=== PATIENT | female | born 1990 | race African-American/Black ===

== ENCOUNTER 2020-01-24 16:39 | Emergency (ER) | payer OTHER, MEDICAID ==
[~2020-01-24] VITALS: Ht 152.4 cm; Wt 107.0 kg
[2020-01-24] MEDS ORDERED: TRANDATE 200 M200 M1 PO (17:14)
[2020-01-24] MEDS ORDERED: PLAQUENIL200 MG PO (17:14)
[2020-01-24] MEDS ORDERED: NORVASC5 M1 PO (17:15)
[2020-01-24] MEDS ORDERED: PREDNISONE 5 MG5 M1 PO (17:15)
[2020-01-24 17:56] LABS: INFLUENZA A ANTIGEN Negative (Negative)
[2020-01-24 18:10] VITALS: BP 138/81
== END 2020-01-24 18:10 | disposition home or self-care (01) ==
LOC: M.ERS 16:39
PROVIDERS: Nurse Practitioner
DX: J10.1 Influenza due to other identified influenza virus with other respiratory manifestations (principal); I10 Essential (primary) hypertension; M06.9 Rheumatoid arthritis, unspecified; Z88.0 Allergy status to penicillin; Z88.1 Allergy status to other antibiotic agents; Z88.8 Allergy status to other drugs, medicaments and biological substances

== ENCOUNTER 2020-05-24 09:35 | Emergency (ER) | payer OTHER ==
[~2020-05-24] VITALS: Ht 162.6 cm; Wt 158.8 kg
[~2020-05-24 09:35] MED LIST: NORVASC5 M1 PO; PLAQUENIL200 MG PO; PREDNISONE 5 MG5 M1 PO; TRANDATE 200 M200 M1 PO
[2020-05-24 10:33] LABS: HEMATOCRIT 41.5 % (37.0-47.0); MCH 29.4 pg (26.0-34.0); MCHC 33.7 g/dL (28.0-37.0); MCV 87.4 fL (80.0-100.0); MPV 7.7 fl. (7.2-11.1); NUCLEATED RBCS 0 /100WBC; PLATELET COUNT* 254 thou/uL (150-400); RBC 4.75 mil/uL (4.20-5.00); RDW-CV 13.7 % (10.5-14.5); WBC 11.9 thou/uL (4.0-11.0)
[2020-05-24 10:43] LABS: CALCIUM 8.6 mg/dL (8.5-10.1); POTASSIUM 3.7 mmol/L (3.5-5.1)
[2020-05-24 10:48] LABS: ALBUMIN 3.2 g/dL (3.4-5.0); TOTAL BILIRUBIN 0.5 mg/dL (<0.1-1.0); TOTAL PROTEIN 6.9 g/dL (6.4-8.2)
[2020-05-24 11:05] LABS: URINE BILIRUBIN NEGATIVE (Negative); URINE BLOOD 3+ (Negative); URINE CLARITY CLEAR; URINE COLOR YELLOW; URINE GLUCOSE-RANDOM NEGATIVE (Negative); URINE KETONES NEGATIVE (Negative); URINE LEUKOCYTES-REFLEX 1+ (Negative); URINE NITRITE-REFLEX NEGATIVE (Negative); URINE PROTEIN NEGATIVE (Negative); URINE SPECIFIC GRAVITY 1.025 (1.005-1.030); URINE UROBILINOGEN 0.2 E.U./dl (0.2-1.0)
[2020-05-24 11:20] LABS: SQUAMOUS 0-3 Few /LPF (0-3); URINE RBC 0-2 Rare /HPF (0-2); URINE WBC-REFLEX 6-15 Few /HPF (0-5)
[2020-05-24 11:21] LABS: CASTS None Seen /LPF (None Seen); CRYSTALS None Seen /LPF (None Seen); MUCUS 0-3 Light strn/LPF (None Seen); TRANSITIONAL EPITHEL CELL 0-3 Few /LPF (None Seen)
[2020-05-24] MEDS ORDERED: BACTRIM DS TAB1 EACH PO (11:47)
[2020-05-24 11:56] LABS: ABSOLUTE LYMPHOCYTES 1.3 thou/uL (0.8-5.3); ABSOLUTE MONOCYTES 0.2 thou/uL (0.0-1.2); ABSOLUTE NEUTROPHILS 10.4 thou/uL (1.6-8.1); PLATELET ESTIMATE ADEQUATE
[2020-05-24 12:20] VITALS: BP 133/77
--- NOTE | 2020-05-25 12:33 | EKG ---
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 : 1990 Requested By: Marquita Flores Order Number: [id number] MD: Josue Rosado Measurements Intervals [place] Rate: 120 P: 48 SC: 149 QRS: 13 QRSD: 95 T: 49 QT: 304 QTc: 430 Interpretive Statements Sinus tachycardia Baseline wander in lead(s) II,III,aVL,aVF No previous ECG available for comparison Electronically Signed On 05-25-2020 12:33:05 CDT by Josue Rosado [email or web address] <ELECTRONICALLY SIGNED> By: Diya Rosado MD, [facility] 05/25/20 1233 0948 0948 Diya Rosado MD, [facility] /EPI
== END 2020-05-24 12:20 | disposition home or self-care (01) ==
LOC: M.ERS 09:35
PROVIDERS: Personal Emergency Response Attendant
DX: N39.0 Urinary tract infection, site not specified (principal); I10 Essential (primary) hypertension; M06.9 Rheumatoid arthritis, unspecified; Z88.0 Allergy status to penicillin; Z88.1 Allergy status to other antibiotic agents; Z88.8 Allergy status to other drugs, medicaments and biological substances

== ENCOUNTER 2021-07-08 10:12 | Emergency (ER) | payer MEDICAID ==
[~2021-07-08] VITALS: Ht 152.4 cm; Wt 105.2 kg
[~2021-07-08 10:12] MED LIST changes: +BACTRIM DS TAB1 EACH PO
[2021-07-08] MEDS ORDERED: XARELTO20 MG PO (10:39)
[2021-07-08] MEDS ORDERED: METHOCARBAMOL500 M2 PO (10:40)
[2021-07-08 11:28] LABS: URINE BILIRUBIN NEGATIVE (Negative); URINE BLOOD NEGATIVE (Negative); URINE CLARITY CLEAR; URINE COLOR YELLOW; URINE GLUCOSE-RANDOM NEGATIVE (Negative); URINE KETONES NEGATIVE (Negative); URINE LEUKOCYTES-REFLEX NEGATIVE (Negative); URINE NITRITE-REFLEX NEGATIVE (Negative); URINE PROTEIN NEGATIVE (Negative); URINE UROBILINOGEN 0.2 E.U./dl (0.2-1.0)
[2021-07-08] MEDS ORDERED: MEDROLDOSEPACK PO (13:23)
[2021-07-08] MEDS ORDERED: FLEXERIL PO (13:24)
[2021-07-08 13:30] VITALS: BP 130/93
== END 2021-07-08 13:34 | disposition home or self-care (01) ==
LOC: M.ERS 10:12
PROVIDERS: Nurse Practitioner Family
DX: M75.41 Impingement syndrome of right shoulder (principal); I10 Essential (primary) hypertension; M06.9 Rheumatoid arthritis, unspecified; Z79.899 Other long term (current) drug therapy; Z88.0 Allergy status to penicillin; Z88.1 Allergy status to other antibiotic agents; Z88.8 Allergy status to other drugs, medicaments and biological substances; Z88.9 Allergy status to unspecified drugs, medicaments and biological substances; Z88.6 Allergy status to analgesic agent; Z86.718 Personal history of other venous thrombosis and embolism

== ENCOUNTER 2021-08-31 10:07 | Emergency (ER) | payer OTHER, MEDICAID ==
[~2021-08-31] VITALS: Ht 152.4 cm; Wt 108.9 kg
[~2021-08-31 10:07] MED LIST changes: +FLEXERIL PO; +MEDROLDOSEPACK PO; +METHOCARBAMOL500 M2 PO; +XARELTO20 MG PO
[2021-08-31 10:46] LABS: URINE BILIRUBIN NEGATIVE (Negative); URINE BLOOD 3+ (Negative); URINE CLARITY SL CLOUDY; URINE COLOR RED; URINE GLUCOSE-RANDOM NEGATIVE (Negative); URINE KETONES NEGATIVE (Negative); URINE LEUKOCYTES-REFLEX TRACE (Negative); URINE NITRITE-REFLEX NEGATIVE (Negative); URINE PROTEIN 2+ (Negative); URINE UROBILINOGEN 0.2 E.U./dl (0.2-1.0)
[2021-08-31 10:53] LABS: BACTERIA-REFLEX None Seen /HPF (None Seen); CASTS None Seen /LPF (None Seen); MUCUS None Seen strn/LPF (None Seen); SQUAMOUS 0-3 Few /LPF (0-3); URINE RBC >20 Many /HPF (0-2); URINE WBC-REFLEX 0-5 Rare /HPF (0-5)
--- NOTE | 2021-08-31 10:55 | EKG ---
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 : 1990 Requested By: Margy Nolasco Order Number: [id number] MD: Leonardo Vasquez Measurements Intervals [place] Rate: 85 P: 54 WI: 167 QRS: 12 QRSD: 94 T: 38 QT: 374 QTc: 445 Interpretive Statements Sinus rhythm Probable left atrial enlargement Probable left ventricular hypertrophy Anterior Q waves, possibly due to LVH Baseline wander in lead(s) I,III,aVR,aVL Compared to ECG 05/24/2020 09:48:08 Left ventricular hypertrophy now present Sinus tachycardia no longer present Electronically Signed On 08-31-2021 10:55:08 CDT by Leonardo Vasquez [email or web address] <ELECTRONICALLY SIGNED> By: Leonardo Vasquez MD, FACC 08/31/21 1055 1011 1011 Leonardo Vasquez MD, [facility] /EPI
[2021-08-31 11:00] LABS: HEMATOCRIT 38.9 % (37.0-47.0); HEMOGLOBIN 12.8 gm/dL (12.0-15.0); LYMPHOCYTES 43.3 %; MCH 27.4 pg (26.0-34.0); MCV 82.8 fL (80.0-100.0); MPV 7.4 fl. (7.2-11.1); PLATELET COUNT* 225 thou/uL (150-400); POLYS 47.9 %; RDW-CV 14.8 % (10.5-14.5); WBC 6.1 thou/uL (4.0-11.0)
[2021-08-31 11:01] LABS: ABSOLUTE EOSINOPHILS 0.1 thou/uL (0.0-0.7); ABSOLUTE LYMPHOCYTES 2.6 thou/uL (0.8-5.3); ABSOLUTE MONOCYTES 0.4 thou/uL (0.0-1.2); ABSOLUTE NEUTROPHILS 2.9 thou/uL (1.6-8.1); BASOPHILS 0.4 %; EOSINOPHILS 1.3 %; MONOCYTES 7.1 %; NUCLEATED RBCS 0 /100WBC
[2021-08-31 11:03] LABS: INFLUENZA A ANTIGEN Negative (Negative); INFLUENZA B ANTIGEN Negative (Negative)
[2021-08-31 11:14] LABS: CALCIUM 8.5 mg/dL (8.5-10.1); CREATININE 0.8 mg/dL (0.6-1.3); POTASSIUM 3.5 mmol/L (3.5-5.1)
[2021-08-31 11:23] LABS: AMP/METHAMP Negative (Negative); BARBITURATES Negative (Negative); BENZODIAZEPINES Negative (Negative); COCAINE Negative (Negative); METHADONE Negative (Negative); OPIATES Negative (Negative); PCP Negative (Negative); THC Negative (Negative)
[2021-08-31 11:25] LABS: ALBUMIN 3.4 g/dL (3.4-5.0); MAGNESIUM 1.8 mg/dL (1.8-2.4); TOTAL BILIRUBIN 0.3 mg/dL (<0.1-1.0); TOTAL PROTEIN 6.9 g/dL (6.4-8.2)
[2021-08-31] MEDS ORDERED: HYDROXYZINE HCL25 M2 PO (13:35)
[2021-08-31] MEDS ORDERED: FLEXERIL PO (13:35)
[2021-08-31] MEDS ORDERED: NASONEX17 GM NASAL (13:35)
[2021-08-31] MEDS ORDERED: METHOCARBAMOL750 MG PO (13:45)
[2021-08-31 13:49] VITALS: BP 134/72
== END 2021-08-31 13:51 | disposition home or self-care (01) ==
LOC: M.ERS 10:07
PROVIDERS: Nurse Practitioner Family
DX: B34.9 Viral infection, unspecified (principal); Z20.822 Contact with and (suspected) exposure to COVID-19; F41.9 Anxiety disorder, unspecified; R07.89 Other chest pain; I10 Essential (primary) hypertension; Z79.899 Other long term (current) drug therapy; Z88.1 Allergy status to other antibiotic agents; Z88.0 Allergy status to penicillin; Z88.6 Allergy status to analgesic agent; Z88.9 Allergy status to unspecified drugs, medicaments and biological substances

== ENCOUNTER 2021-09-03 00:09 | Emergency (ER) | payer OTHER, MEDICAID ==
[~2021-09-03] VITALS: Ht 152.4 cm; Wt 107.0 kg
[~2021-09-03 00:09] MED LIST changes: +HYDROXYZINE HCL25 M2 PO; +METHOCARBAMOL750 MG PO; +NASONEX17 GM NASAL
[2021-09-03 00:36] LABS: URINE BILIRUBIN NEGATIVE (Negative); URINE BLOOD 3+ (Negative); URINE CLARITY CLEAR; URINE COLOR YELLOW; URINE GLUCOSE-RANDOM NEGATIVE (Negative); URINE KETONES NEGATIVE (Negative); URINE LEUKOCYTES-REFLEX NEGATIVE (Negative); URINE NITRITE-REFLEX NEGATIVE (Negative); URINE PROTEIN 1+ (Negative); URINE SPECIFIC GRAVITY 1.025 (1.005-1.030); URINE UROBILINOGEN 0.2 E.U./dl (0.2-1.0)
[2021-09-03 00:47] LABS: CASTS None Seen /LPF (None Seen); CRYSTALS None Seen /LPF (None Seen); MUCUS 0-3 Light strn/LPF (None Seen); SQUAMOUS 0-3 Few /LPF (0-3); TRANSITIONAL EPITHEL CELL 0-3 Few /LPF (None Seen); URINE RBC >20 Many /HPF (0-2); URINE WBC-REFLEX 0-5 Rare /HPF (0-5)
[2021-09-03] MEDS ORDERED: FLAGYL500 M1 PO (06:15)
[2021-09-03] MEDS ORDERED: ACETAMINOPHEN-1 EAC2 PO (06:15)
[2021-09-03 07:04] VITALS: BP 136/85
== END 2021-09-03 07:08 | disposition home or self-care (01) ==
LOC: M.ERS 00:09
PROVIDERS: Personal Emergency Response Attendant
DX: R10.2 Pelvic and perineal pain (principal); I10 Essential (primary) hypertension; Z79.899 Other long term (current) drug therapy; Z88.1 Allergy status to other antibiotic agents; Z88.0 Allergy status to penicillin; Z88.9 Allergy status to unspecified drugs, medicaments and biological substances; Z88.6 Allergy status to analgesic agent

== ENCOUNTER 2021-09-30 21:08 | Emergency (ER) | payer OTHER ==
[~2021-09-30] VITALS: Ht 152.4 cm; Wt 112.5 kg
[~2021-09-30 21:08] MED LIST changes: +ACETAMINOPHEN-1 EAC2 PO; +FLAGYL500 M1 PO
[2021-09-30 22:14] LABS: HEMATOCRIT 36.7 % (37.0-47.0); HEMOGLOBIN 11.9 gm/dL (12.0-15.0); MCH 26.5 pg (26.0-34.0); MCHC 32.6 g/dL (28.0-37.0); MCV 81.4 fL (80.0-100.0); MPV 7.1 fl. (7.2-11.1); NUCLEATED RBCS 0 /100WBC; PLATELET COUNT* 270 thou/uL (150-400); RBC 4.51 mil/uL (4.20-5.00); RDW-CV 14.6 % (10.5-14.5); WBC 3.7 thou/uL (4.0-11.0)
[2021-09-30 22:20] LABS: CALCIUM 8.6 mg/dL (8.5-10.1); CREATININE 0.7 mg/dL (0.6-1.3); POTASSIUM 3.6 mmol/L (3.5-5.1)
[2021-09-30 22:25] LABS: ALBUMIN 3.3 g/dL (3.4-5.0); TOTAL BILIRUBIN 0.2 mg/dL (<0.1-1.0); TOTAL PROTEIN 7.2 g/dL (6.4-8.2)
[2021-09-30 22:51] VITALS: BP 139/90
[2021-09-30 22:58] LABS: ABSOLUTE LYMPHOCYTES 2.6 thou/uL (0.8-5.3); ABSOLUTE MONOCYTES 0.6 thou/uL (0.0-1.2); ABSOLUTE NEUTROPHILS 0.4 thou/uL (1.6-8.1); ATYPICAL LYMPHS 7 %
[2021-09-30 22:59] LABS: PLATELET ESTIMATE ADEQUATE
== END 2021-09-30 22:52 | disposition home or self-care (01) ==
LOC: M.ERS 21:08
PROVIDERS: Physician Assistant
DX: R04.0 Epistaxis (principal); Z20.822 Contact with and (suspected) exposure to COVID-19; J34.89 Other specified disorders of nose and nasal sinuses; R53.81 Other malaise; I10 Essential (primary) hypertension; M06.9 Rheumatoid arthritis, unspecified; M32.9 Systemic lupus erythematosus, unspecified; Z86.718 Personal history of other venous thrombosis and embolism; Z79.899 Other long term (current) drug therapy; Z88.1 Allergy status to other antibiotic agents; Z88.8 Allergy status to other drugs, medicaments and biological substances; Z88.0 Allergy status to penicillin

== ENCOUNTER 2021-11-14 13:06 | Emergency (ER) | payer MEDICAID ==
[~2021-11-14] VITALS: Ht 152.4 cm; Wt 116.1 kg
[2021-11-14] MEDS ORDERED: PREDNISONE 20 M20 MG PO (13:17)
[2021-11-14] MEDS ORDERED: FLONASE 0.05%50 MCG NARES (13:17)
[2021-11-14] MEDS ORDERED: PULMICORT FLEX90 MCG INH (14:05)
[2021-11-14] MEDS ORDERED: DEXAMETHASONE 44 M1 PO (14:05)
[2021-11-14] MEDS ORDERED: ZPAK PO (14:05)
[2021-11-14 14:24] VITALS: BP 156/91
== END 2021-11-14 14:25 | disposition home or self-care (01) ==
LOC: M.ERS 13:06
DX: J40 Bronchitis, not specified as acute or chronic (principal); I10 Essential (primary) hypertension; Z79.899 Other long term (current) drug therapy; Z88.0 Allergy status to penicillin; Z88.8 Allergy status to other drugs, medicaments and biological substances